=== PATIENT | female | born 1935 | race African-American/Black ===

== ENCOUNTER 2018-08-17 18:18 | Emergency (ER) | payer MEDICARE ==
[~2018-08-17] VITALS: Ht 160 cm; Wt 73.0 kg
[2018-08-17 19:33] VITALS: BP 148/71
== END 2018-08-17 19:35 | disposition home or self-care (01) ==
LOC: ER 18:18
DX: S61.215A Laceration without foreign body of left ring finger without damage to nail, initial encounter (principal); X58.XXXA Exposure to other specified factors, initial encounter; Y93.89 Activity, other specified; Y92.89 Other specified places as the place of occurrence of the external cause; Y99.8 Other external cause status
CPT/HCPCS: 12001; 99283